=== PATIENT | male | born 1980 | race Caucasian/White ===

== ENCOUNTER 2021-01-31 14:40 | Outpatient (CLI) | payer OTHER | END 2021-01-31 14:41 | disposition critical access hospital (66) | LOC: EMS 14:40 | DX: S49.92XA Unspecified injury of left shoulder and upper arm, initial encounter (principal); V29.49XA Motorcycle driver injured in collision with other motor vehicles in traffic accident, initial encounter; Y93.55 Activity, bike riding; Y92.415 Exit ramp or entrance ramp of street or highway as the place of occurrence of the external cause | CPT/HCPCS: A0425; A0429 ==

== ENCOUNTER 2021-01-31 14:55 | Emergency (ER) | payer OTHER ==
[2021-01-31] MEDS ORDERED: KETOROLAC 15 MG/ML VIAL IM STA (15:15)
[2021-01-31] MEDS ORDERED: HYDROcod/ACETAM 5/325 MG TABLET PO STA (15:39)
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
[2021-01-31 17:05] VITALS: BP 128/86
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
== END 2021-01-31 17:11 | disposition home or self-care (01) ==
LOC: ED 14:55
DX: S42.022A Displaced fracture of shaft of left clavicle, initial encounter for closed fracture (principal); V22.4XXA Motorcycle driver injured in collision with two- or three-wheeled motor vehicle in traffic accident, initial encounter; Y93.55 Activity, bike riding; F17.200 Nicotine dependence, unspecified, uncomplicated
CPT/HCPCS: 73000; 73030; 96372; 99283; 99284; A9270